=== PATIENT | female | born 1965 | race African-American/Black ===

== ENCOUNTER 2017-05-13 09:50 | Day surgery (SDC) | payer BC ==
[2017-05-10 09:07] VITALS: BMI 34.9
--- NOTE | 2017-05-13 11:43 | HP ---
History & Physical Update - History History: No Change - Physical Physical: No Change - Assessment Assessment: No Change - Plan Plan: No Change
--- NOTE | 2017-05-13 11:54 | OP ---
Operative Note - Note: Operative Date: 05/13/17 Pre-Operative Diagnosis: Voluntary sterilization Operation: Laparoscopic bilateral salpingectomy Post-Operative Diagnosis: Same as Pre-op Surgeon: Sarah Lowe Anesthesia: General Operative Report Dictated: Yes
[2017-05-13] MEDS ORDERED: ONDANSETRON 4 MG/2 ML VIAL IVPUSH PRN (11:56)
[2017-05-13] MEDS ORDERED: LACTATED RINGERS SOLUTION 1,000 ML IV SCH (12:00)
[2017-05-13] MEDS ORDERED: MIDAZOLAM HCL 2 MG/2 ML SINGLE DOSE VIAL ONE (12:07)
[2017-05-13] MEDS ORDERED: DEXAMETHASONE SOD PHOSPHATE 4 MG/1 ML VIAL ONE (12:17)
[2017-05-13] MEDS ORDERED: PROPOFOL 20 ML ONE (12:18)
[2017-05-13] MEDS ORDERED: NEOSTIGMINE METHYLSULFATE 0.5 MG/ML - 10 ML MDV ONE (12:23)
[2017-05-13 14:12] VITALS: TEMP 97.8
[2017-05-13 17:07] VITALS: BP 137/72; PULSE 73
--- NOTE | 2017-05-13 22:12 | OP ---
DATE OF OPERATION: 05/13/2017 PREOPERATIVE DIAGNOSIS: Voluntary sterilization, multiparity. OPERATION: Laparoscopic bilateral salpingectomy. POSTOPERATIVE DIAGNOSIS: Voluntary sterilization, multiparity. SURGEON: Sarah Lowe MD REVENUE MANAGER: Yvette Prabhakar DO ANESTHESIA: General. DESCRIPTION OF PROCEDURE: Patient was taken to the operating room, placed in dorsal lithotomy position, prepped and draped in usual sterile fashion. A timeout was performed in accordance with hospital regulation. Glover catheter was inserted into the bladder. Attention was then drawn to the umbilicus where a 5-mm umbilical incision was made. Veress needle was inserted into the cavity. Approximately 3-4 L of CO2 was insufflated into the cavity. Veress needle was then removed, and a 5-mm trocar was then inserted. Laparoscope and camera were attached. Visualization revealed normal tubes and ovaries. Two trocars were inserted under direct visualization in the lower left and lower right abdomen, after incisions were made. Grasper was then used to grasp the fallopian tube, and LigaSure was then used to coagulate and cut the fallopian tube on the left. The same procedure was repeated on the right side. Hemostasis was achieved. Ovaries were noted to be normal. Visualization of the abdomen revealed normal anatomy. Uterus was normal. CO2 was removed from the abdomen. Incisions were then closed using 4-0 Biosyn in subcuticular fashion. Wounds washed and dressed. Estimated blood loss was 5 mL. Pack count was normal. Luci [id number]
--- NOTE | 2017-05-14 19:02 | PATH ---
Surgical Pathology Report Patient Name: CORRINE RAINES [facility]. Rec. #: [id number] /Age/Gender: 1965 (Age: 51) / F Account: [id number] Location: [facility] SURGICAL Taken: 05/13/2017 Received: 05/13/2017 Reported: 05/14/2017 Physicians: Sarah Lowe M.D. Specimen(s) Received A: RIGHT FALLOPIAN TUBE B: LEFT FALLOPIAN TUBE Clinical History Preoperative diagnosis: Sterilization Final Diagnosis A. FALLOPIAN TUBE, RIGHT, LAPAROSCOPIC SALPINGECTOMY: FULL LUMINAL PORTION OF FALLOPIAN TUBE WITH PARATUBAL CYST. B. FALLOPIAN TUBE, LEFT, LAPAROSCOPIC SALPINGECTOMY: FULL LUMINAL PORTION OF FALLOPIAN TUBE WITH PARATUBAL CYST. Electronically Signed Rosemarie Talavera M.D. Gross Description A. Received in formalin labeled "right fallopian tube," is a 7 cm in length portion of fallopian tube. The fimbriae are separately received within the same container. The outer surface of the fallopian tube is urbina-pink with multiple small paratubal cysts attached averaging 0.2 cm in greatest dimension. Sectioning reveals an unremarkable lumen. Separately received within the same container are 2 additional disrupted cysts measuring 0.8 and 1.0 cm in greatest dimension. Staff Psychologist sections are submitted in 2 cassettes as follows: 1-fimbria and cysts; 2-cross sections of fallopian tube. B. Received in formalin labeled "left fallopian tube," is a 5 cm in length portion of fallopian tube. The fimbriae are separately received within the same container. The outer surface of the fallopian tube is urbina-pink with adhesions. Sectioning reveals an unremarkable lumen. Separately received within the same container is a 1.2 cm in greatest dimension disrupted cyst. Staff Psychologist sections are submitted in 2 cassettes as follows: 1-fimbria and cyst; 2-cross sections of fallopian tube. 05/13/201705/13/2017
== END 2017-05-13 18:18 | disposition home or self-care (01) ==
LOC: JASU-SURG 09:50
PROVIDERS: ATTEND Obstetrics & Gynecology
PROC: 0U574ZZ Destruction of Bilateral Fallopian Tubes, Percutaneous Endoscopic Approach (ICD-10-PCS; principal; 2017-05-13 11:30)
DX: Z30.2 Encounter for sterilization (principal)
CPT/HCPCS: 84703; 88302-TC; 94760